=== PATIENT | female | born 1940 ===

== ENCOUNTER 2016-10-01 21:18 | Observation (INO) | payer MEDICARE ==
[~2016-10-01] VITALS: Ht 167.6 cm; Wt 60.3 kg
[2016-10-03 16:00] VITALS: BP 129/58; PULSE 96; RESP 18; TEMP 97.9; O2SAT 96
[2016-10-03] MEDS ORDERED: SIMV40TA PO (17:05)
[2016-10-03] MEDS ORDERED: OMEP20TA PO (17:05)
[2016-10-03] MEDS ORDERED: DIGO0.12 PO (17:05)
[2016-10-03] MEDS ORDERED: PROP20TA3 PO (17:05)
[2016-10-03] MEDS ORDERED: NORT50CA PO (17:05)
[2016-10-03] MEDS ORDERED: WARF-18 PO (17:05)
[2016-10-03] MEDS ORDERED: SODIUM CHLORIDE 0.9% FLUSH 5 ML FLUSH FLUSH PRN (18:30)
[2016-10-03] MEDS: SENNOSIDES 8.6 MG TAB PO SCH (18:30)
[2016-10-03] MEDS ORDERED: ZOLPIDEM TARTRATE 5 MG TAB PO PRN (18:30)
[2016-10-03] MEDS ORDERED: ACETAMINOPHEN 325 MG TAB PO PRN (18:30)
[2016-10-03] MEDS ORDERED: NALOXONE HCL 0.4 MG/ML AMP IV PRN (18:30)
--- NOTE | 2016-10-03 18:50 | HHI.HP ---
[facility] Unknown Admission Diagnosis Diagnoses: (1) Orbital floor fracture (2) Nondisplaced fracture of right patella (3) History of mitral valve replacement with mechanical valve Chief Complaint: Fall Travel History International Travel<30 Days: Yes Contact w/Intl Traveler <30 Da: Yes Name of Country Traveled to: [place] Traveled to Known Affected Are: Yes History of Present Illness The patient is a 76-year-old female who was recently on a cruise and fell on a stair of a house in [facility] and was admitted to a hospital in [place]. The patient had a mechanical fall over a stair and fell on the right side of her body. She hit the right side of her face on the floor as well as her right lower extremity. She was on Coumadin at that time. She was taken to the hospital and was found to have multiple injuries including a nondisplaced right patellar fracture, minimally displaced fracture of the floor of her right orbit and a laceration to the right lower extremity. The patient says she fell down on the 11th of this month. 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 She said that the stairs she was negotiating had a ramp and it was very thin and she misjudged her step. She says her right sinus was filled with blood. She said that failed anticoagulation for 7 days at the hospital in [place]. She said anticoagulation was resumed as of yesterday. The patient endorses constipation. She says her pain is well-controlled at this time. She says she has been ambulating with a walker. She says she worked with physical therapy twice. She says she had a Villela catheter placed for transportation and she is worried she might be coming down with a urinary tract infection. She was concerned that the nurse mentioned she may have some crackles and she was wondering if she might be coming down with pneumonia. Review of Systems Eyes: COMPLAINS OF: Vision loss Ears, nose, mouth, throat: COMPLAINS OF: Nasal discharge, Epistaxis, Sinus Pain Cardiovascular: COMPLAINS OF: Lower Extremity Edema Gastrointestinal: COMPLAINS OF: Constipation Genitourinary: COMPLAINS OF: Dysuria Musculoskeletal: COMPLAINS OF: Joint pain, Muscle aches, Stiffness, Joint Swelling Hematologic/lymphatic: COMPLAINS OF: Bruising Neurologic: COMPLAINS OF: Abnormal gait Past Family Social History Past Medical History Mechanical mitral valve replacement CHF Hyperlipidemia Psoriasis Migraine Optic neuritis with vision loss in the left eye Past Surgical History Knee surgery Allergies: Coded Allergies: No Known Allergies (Unverified , 10/03/16) Active Ordered Medications Current Medications Medications (Trade) Dose Ordered Sig/Patricia Route Start Time Stop Time Status Last Admin (Lanoxin) 0.125 mg DAILY PO 10/04/16 09:00 (Pamelor) 50 mg HS PO 10/03/16 21:00 (Protonix) 20 mg DAILY PO 10/04/16 09:00 (Inderal) 20 mg Q12HR PO 10/03/16 21:00 (Pravachol) 80 mg HS PO 10/03/16 21:00 (Lovenox Inj) 50 mg Q12H SQ 10/03/16 18:30 UNV (NS Flush) 2 ml UNSCH PRN FLUSH 10/03/16 18:30 UNV (NS Flush) 2 ml BID FLUSH 10/03/16 21:00 UNV (Tylenol) 650 mg Q4H PRN PO 10/03/16 18:30 UNV (Colace) 100 mg Q12H PO 10/03/16 18:30 UNV (Senokot) 17.2 mg DAILY PO 10/03/16 18:30 UNV (Ambien) 5 mg HS PRN PO 10/03/16 18:30 UNV (Tylenol) 650 mg Q6H PRN PO 10/03/16 18:30 UNV (Roxicodone) 10 mg Q4H PRN PO 10/03/16 18:30 UNV (Roxicodone) 5 mg Q4H PRN PO 10/03/16 18:30 UNV (Narcan Inj) 0.4 mg UNSCH PRN IV 10/03/16 18:30 UNV Warfarin Sodium 5 mg 5 mg DAILY@1600 PO 10/04/16 16:00 UNV (Coumadin Consult Pharmacy) 0 ml @ 0 mls/hr UNSCH OTHER 10/03/16 18:30 UNV Family History The patient says her father either had prostate or renal cancer Social History The patient does not smoke or drink. Physical Exam Vital Signs Vital Signs Date Time Temp Pulse Resp B/P Pulse Ox O2 Delivery O2 Flow Rate FiO2 10/03/16 16:00 97.9 96 18 129/58 96 Physical Exam GENERAL: This is a well-nourished, well-developed patient, in no apparent distress. SKIN: The right side of the patient's face is swollen and with ecchymosis. She has ecchymosis in her right arm as well. She has psoriasis in the upper and lower extremities. HEENT: Swelling to the right side of the patient's face. NECK: Trachea midline. No JVD or lymphadenopathy. Supple, nontender, no meningeal signs. CARDIOVASCULAR: Regular rate and rhythm. Grade 2 systolic murmur appreciated. RESPIRATORY: Clear to auscultation. Breath sounds equal bilaterally. No wheezes , rales, or rhonchi. GASTROINTESTINAL: Abdomen soft, non-tender, nondistended. No hepato-splenomegaly , or palpable masses. No guarding. MUSCULOSKELETAL: Right lower extremity immobilizer. Bandage in place. NEUROLOGICAL: Awake and alert. Cranial nerves II through XII intact. Motor and sensory grossly within normal limits. Five out of 5 muscle strength in all muscle groups except for right lower extremity which is in a mobilizer. Normal speech. PSYCH: Mood and affect appropriate. Assessment and Plan Assessment and Plan Trauma The patient fell while on a cruise out of the country and was managed in the hospital in [place]. The patient sustained multiple injuries including a minimally displaced right orbital floor fracture, nondisplaced right patellar fracture as well as a laceration and bleeding into the right side of her maxillary sinus. She was seen by numerous physicians including an orthopedic surgeon, a neurosurgery and a maxillofacial surgeon. She was managed conservatively. She was resumed on anticoagulation. - Ortho evaluation for right patellar fracture. - Physical therapy. - Monitor while on anticoagulation. - Pain control with a bowel regimen. Mechanical mitral valve/ CHF The patient has a history of mitral valve replacement and is on Coumadin. Her anticoagulation was held for 7 days while at the outside hospital in the setting of her hematoma but has been resumed. Her last INR was reportedly 1.04. - Resume Coumadin along with the therapeutic Lovenox bridge. Monitor for signs of bleeding. - Continue cardiac regimen. - Chest x-ray pending. Constipation The patient believes it has been a week since her last bowel movement. - Start a bowel regimen including Colace, senna, MiraLAX and lactulose. - Suppository or enema if no success with above. - KUB pending. UTI The patient says that she feels like she might be coming down with urinary tract infection since she had a Villela catheter placed for travel. - UA pending. - Remove Villela catheter. PPx: Lovenox, Coumadin. Code Status Full Discussed Condition With Pt, pt's nurse, Al Rene DO Oct 03, 2016 18:50
[2016-10-03 18:58] LABS: AUTOMATED NEUTROPHIL # 6.8 TH/MM3 (1.8-7.7); BASOPHIL # 0.1 TH/MM3 (0-0.2); BASOPHIL % 1.1 % (0.0-2.0); EOSINOPHIL # 0.2 TH/MM3 (0-0.4); EOSINOPHIL % 2.7 % (0.0-4.0); HEMATOCRIT 35.8 % (35.0-46.0); HEMO FLAGS DIFF FINAL; LYMPH % 8.1 % (9.0-44.0); LYMPHOCYTE # 0.7 TH/MM3 (1.0-4.8); MEAN CELL VOLUME 96.4 FL (80.0-100.0); MEAN CORPUSCULAR HEMOGLOBIN 33.1 PG (27.0-34.0); MEAN CORPUSCULAR HGB CONC 34.4 % (32.0-36.0); MONO % 9.1 % (0.0-8.0); PLATELET COUNT 363 TH/MM3 (150-450); RED BLOOD COUNT 3.71 MIL/MM3 (4.00-5.30); RED CELL DISTRIBUTION WIDTH 13.6 % (11.6-17.2); WHITE BLOOD COUNT 8.5 TH/MM3 (4.0-11.0)
[2016-10-03] MEDS: POLYETHYLENE GLYCOL 17 GM PKG PO SCH (19:00)
[2016-10-03] MEDS: LACTULOSE SYRUP 20 GM/30 ML CUP PO SCH (19:00)
[2016-10-03 19:19] LABS: PROTHROMBIN TIME - PATIENT 11.6 SEC (9.8-11.6)
[2016-10-03 19:27] LABS: BICARBONATE 32.8 MEQ/L (21.0-32.0); POTASSIUM 4.2 MEQ/L (3.5-5.1)
[2016-10-03] MEDS: DOCUSATE SODIUM 100 MG CAP PO SCH (20:00)
[2016-10-03 20:13] VITALS: BP 140/75; PULSE 101; RESP 16; TEMP 98; O2SAT 96
[2016-10-03] MEDS: PRAVASTATIN SOD 80 MG TAB PO SCH (21:33)
[2016-10-03] MEDS: PROPRANOLOL HCL 20 MG TAB PO SCH (21:33)
[2016-10-03] MEDS: ENOXAPARIN SODIUM 60 MG/0.6 ML SYRINGE SQ SCH (21:35)
[2016-10-03] MEDS: SODIUM CHLORIDE 0.9% FLUSH 5 ML FLUSH FLUSH SCH (21:39)
--- NOTE | 2016-10-03 21:41 | RADRPT ---
EXAM DATE/TIME: 10/03/2016 21:07 [facility] COMPARISON: No previous studies available for comparison. INDICATIONS : Right knee pain from fall 2 weeks ago. MEDICAL HISTORY : Right patella fracture SURGICAL HISTORY : None. ENCOUNTER: Initial ACUITY: 2 weeks PAIN SCORE: 7/10 LOCATION: Right anterior knee FINDINGS: There does appear to be fracturing of the patella. The fragments are not significantly displaced. T here is a mild joint effusion. There is narrowing of the lateral joint space. There is hypertrophic change at the lateral tibial plateau. CONCLUSION: Patellar fracture with a mild effusion. Bertram Martines MD on October 03, 2016 at 21:36 Board Certified Radiologist. This report was verified electronically.
--- NOTE | 2016-10-03 21:42 | RADRPT ---
EXAM DATE/TIME: 10/03/2016 20:52 [facility] COMPARISON: No previous studies available for comparison. INDICATIONS : Shortness of breath MEDICAL HISTORY : None. SURGICAL HISTORY : Heart valve replacement ENCOUNTER: Initial ACUITY: 1 day PAIN SCORE: 0/10 LOCATION: Bilateral chest FINDINGS: The patient is status post sternotomy. Prosthetic valve is present. The heart size is normal. Ther e is elevation of the left hemidiaphragm. The lungs appear grossly clear. Significant effusion is n ot seen. CONCLUSION: No definite acute abnormality is seen. Bertram Martines MD on October 03, 2016 at 21:35 Board Certified Radiologist. This report was verified electronically.
[2016-10-03] MEDS: NORTRIPTYLINE HCL 25 MG CAP PO SCH (21:56)
--- NOTE | 2016-10-03 21:56 | RADRPT ---
EXAM DATE/TIME: 10/03/2016 20:57 [facility] COMPARISON: No previous studies available for comparison. INDICATIONS : Abdominal distension MEDICAL HISTORY : None. SURGICAL HISTORY : None. ENCOUNTER: Initial ACUITY: 1 day PAIN SCORE: 0/10 LOCATION: Bilateral abdomen FINDINGS: Air is seen within nondilated segments of bowel. There is a moderate amount of stool seen in the col on. There does appear to be a faint ringlike structure seen over the pelvis which may be related to a pessary ring. There is degenerative change in the lumbar spine. Free air is not seen. CONCLUSION: No definite acute abnormality is seen. There is a moderate amount of stool seen in the colon. Bertram Martines MD on October 03, 2016 at 21:51 Board Certified Radiologist. This report was verified electronically.
[2016-10-04] VITALS: BP 158/86; PULSE 83; RESP 16; TEMP 97.9; O2SAT 97
[2016-10-04 06:01] LABS: PROTHROMBIN TIME - PATIENT 11.5 SEC (9.8-11.6)
[2016-10-04 06:51] LABS: BACTERIA, URINE FEW /hpf; BLOOD, URINE MOD (NEG); GLUCOSE,URINE NEG (NEG); KETONE, URINE NEG (NEG); NITRITE,URINE NEG (NEG); SQUAMOUS EPITHELIAL CELL URINE 3 /hpf (0-5); URINE COLOR YELLOW (YELLW/STRAW)
[2016-10-04 06:53] LABS: COMMENT (UR) CULT NOT INDICATED; CULTURE IF INDICATED CULT NOT INDICATED
--- NOTE | 2016-10-04 07:03 | PD.ORT.PN ---
Subjective Subjective Remarks s/p right patella fx and right leg skin tear doing wel. no complaints Objective Vitals Vital Signs Date Time Temp Pulse Resp B/P Pulse Ox O2 Delivery O2 Flow Rate FiO2 10/04/16 00:00 97.9 83 16 158/86 97 10/03/16 20:13 98.0 101 16 140/75 96 10/03/16 16:00 97.9 96 18 129/58 96 I/O 10/03/16 10/03/16 10/03/16 10/04/16 10/04/16 10/04/16 07:00 15:00 23:00 07:00 15:00 23:00 Intake Total 360 ml 240 ml Balance 360 ml 240 ml Intake Oral 360 ml 240 ml # Voids 2 2 # Bowel Movements 1 Result Diagram: 10/03/16 1841 10/03/16 1841 Other Results Laboratory Tests Test 10/03/16 10/04/16 18:41 05:26 Prothrombin Time 11.6 SEC 11.5 SEC (9.8-11.6) (9.8-11.6) Prothromb Time International 1.0 RATIO 1.0 RATIO Ratio Imaging Last 24 hours Impressions Knee X-Ray 10/03/162056 Signed Impressions: Service Date/Time: Monday, October 03, 2016 21:07 - CONCLUSION: Patellar fracture with a mild effusion. Bertram Martines MD Chest X-Ray 10/03/161820 Signed Impressions: Service Date/Time: Monday, October 03, 2016 20:52 - CONCLUSION: No definite acute abnormality is seen. Bertram Martines MD Objective Remarks RLE: +CKS. NVI distally. skin tear on anterior tibia. healing well. no drainage or purulence. no erythema. Assessment & Plan Assessment and Plan 1) Right Patella Fx - nonop -Maintain knee brace at all times -WBAT in knee brace -PT to eval -DC planning -f/u with Jan or [facility] in 2 weeks 2) Right Leg Skin Tear -daily drssing changes with xeroform/4x4/RAJESH Jack Bansal Oct 04, 2016 07:03
[2016-10-04] MEDS ORDERED: WALKER/ADULT/FO1 MIS (07:05)
[2016-10-04] MEDS ORDERED: NORC5TAB PO (07:05)
[2016-10-04 08:00] VITALS: BP 137/70; PULSE 73; RESP 18; TEMP 96.9; O2SAT 96
[2016-10-04 08:21] VITALS: O2SAT 96
--- NOTE | 2016-10-04 08:30 | MB ---
cc: FAB HALL DATE OF CONSULTATION: 10/04/2016 REASON FOR CONSULTATION: Nondisplaced right patella fracture. HISTORY OF PRESENT ILLNESS: Ms. Gamboa is a 76 year-old female who was on a cruise. She fell while she was in [facility]. She went back to the cruise ship for medical care and then was taken to a hospital in [place]. She was observed there for three days. She hit her head and right leg. She had a laceration on the leg which was previously closed. She had significant bruising and swelling of her face and head. She denies any dizziness, syncope or loss of consciousness. She describes it as a mechanical fall going up stairs. She is chronically on Coumadin secondary to valve replacement surgery. She has been admitted to [facility] for continued treatment of these injuries. She continues to have some pain in the knee. The pain is worse with movement and is improves with rest. PAST MEDICAL HISTORY ILLNESSES 1. CHF. 2. High cholesterol. 3. Psoriasis. 4. Migraines. 5. Optic neuritis with left eye vision loss. PAST SURGICAL HISTORY: 1. Previous knee surgery. 2. Right leg laceration closure. ALLERGIES: No known drug allergies. MEDICATIONS: Please see EMR for a complete list of patient's medications. The list was reviewed. This includes Coumadin. FAMILY HISTORY: Positive for prostate cancer in a father. SOCIAL HISTORY: The patient denies alcohol, tobacco or drug use. REVIEW OF SYSTEMS: The patient denies headache, neck pain, chest pain, shortness of breath, abdominal pain, nausea, vomiting, recent weight loss or numbness or tingling of extremities. She has chronic vision loss. She does have some pain around her right knee and leg. PHYSICAL EXAMINATION The patient is a thin 76 year-old female who is awake and alert. She is alert and oriented x3. Vital signs: Temperature 97.9, pulse 83, respirations 16, blood pressure 158/86. O2 sat 97% on room air. Head: The patient has swelling and bruising around her face. Skin is otherwise intact. Neck: Soft, nontender. Trachea is midline. Abdomen: Soft, nontender, nondistended. Extremities: Examination of bilateral upper extremities reveals no significant pain with shoulder, elbow, or wrist motion. She has intact sensation in radial, ulnar, median nerve distributions bilaterally. She has palpable radial pulses. The embossing press operator molded goods strength +5 bilaterally. Examination of left leg reveals no pain with hip, knee or ankle motion. Skin is intact. Dorsalis pedis pulses palpable. Sensation is intact in left foot. Examination of right leg reveals no significant pain or tenderness around her hip or ankle. She has intact sensation right foot. Dorsalis pedis pulse is palpable. She has approximately a five inch laceration over her anterior tibia which has been closed. There is no erythema present. There is a small amount of bleeding. There is some superficial skin opening. She also has some swelling and bruising around the patella. She is tender to palpation of the patella. X-RAYS X-rays of right knee were reviewed. X-rays reveal a minimally displaced right patella fracture. IMPRESSION 1. Mechanical fall with significant facial bleeding and bruising. 2. Nondisplaced right patella fracture. 3. Right leg laceration. PLAN At this point I would recommend treating the patella fracture, non-operatively. She may weightbear as tolerated with knee immobilizer on. We will start doing daily dressing changes with Xeroform, 4x4s and Chris wrap on her right leg. All questions were answered. She may follow up in the office in two weeks for repeat x-rays of right knee. A mid-level provider in my office, nurse practitioner or PA, may see this patient on a follow-up basis and continue to implement the objective of this plan including: Starting or adjusting medications, injections of muscle, tendon, bursa or joints, cast application, orthotic or brace application, physical therapy, further radiographic studies including x-ray, MRI, CT, ultrasounds or bone scan, vascular studies, neurologic studies, or other specialist consultations, and proceeding with surgical management as appropriate. MD EVIN Cardona/LEVI /7:03 AM /7:52 AM
[2016-10-04] MEDS: LACTULOSE SYRUP 20 GM/30 ML CUP PO SCH (09:00)
[2016-10-04] MEDS: SENNOSIDES 8.6 MG TAB PO SCH (09:00)
[2016-10-04] MEDS: PANTOPRAZOLE SOD 20 MG DELAYED RELEASE TAB PO SCH (09:11)
[2016-10-04] MEDS: DOCUSATE SODIUM 100 MG CAP PO SCH ×2 (09:11→20:00)
[2016-10-04] MEDS: PROPRANOLOL HCL 20 MG TAB PO SCH ×2 (09:11→20:19)
[2016-10-04] MEDS: DIGOXIN 0.125 MG TAB PO SCH (09:11)
[2016-10-04] MEDS: SODIUM CHLORIDE 0.9% FLUSH 5 ML FLUSH FLUSH SCH ×2 (09:12→20:18)
[2016-10-04] MEDS: ENOXAPARIN SODIUM 60 MG/0.6 ML SYRINGE SQ SCH ×2 (09:12→20:19)
[2016-10-04] MEDS: POLYETHYLENE GLYCOL 17 GM PKG PO SCH (09:14)
--- NOTE | 2016-10-04 11:20 | MB ---
cc: ARTURO MAYERS DDVilma DATE OF : 1940 DATE OF CONSULTATION: 10/04/2016 CHIEF COMPLAINT "I fell and I hit my head." HISTORY OF PRESENT ILLNESS Ms. Gamboa is a 76 year-old female who was recently on a cruise and fell on the stair case in [facility] [place]. She was admitted to the hospital in [place] and a series of tests and CTs scans were done and it was noted that she had multiple injuries including a nondisplaced right patella fracture, and minimally displaced fracture of the right orbit and laceration of the right lower extremity. The patient stated that this fall occurred on September 23. Currently the patient is admitted to [facility] under the care of the medical team and with consultation to attraction worker and orthopedic. The patient was seen this morning alert, oriented x3, resting comfortably in a chair in no acute distress. Vital signs stable. PAST MEDICAL HISTORY: 1. Mechanical mitral valve replacement. 2. CHF. 3. Hyperlipidemia. 4. Psoriasis. 5. Migraine and uptake neuritis with visual loss in the left eye. PAST SURGICAL HISTORY: Knee surgery. ALLERGIES: NO KNOWN DRUG ALLERGIES. FAMILY HISTORY: The patient says her father had either prostate or renal cancer. SOCIAL HISTORY: The patient does not smoke or drink. PHYSICAL EXAMINATION: The patient is a well-developed, well-nourished female patient, in no acute distress. SKIN: The patient on the right side of the head extending all the way to her clavicle there is some ecchymosis. HEAD: Normocephalic. Eyes: The patient has some periorbital ecchymosis and edema of the right periorbital region with hematoma noted on the right lateral upper aspect of the right periorbital region. Extraocular muscles are intact. Pupils are equal and reactive to light and accommodation in the right eye. Positive V2 paresthesia on the right side. No diplopia. No visual acuity on the left side . Nose: Nasal complex intact with no epistaxis. There are no lacerations or discharge. Maxillofacial: Maxilla and mandible are intact. Occlusion is stable and reproducible. There is no floor of mouth swelling and the area is patent. Neck: Trachea midline. No JVD. No lymphadenopathy noted. RADIOLOGIC STUDIES: Maxillofacial CT was done at the other hospital. The report stated that the patient had a minimally displaced right orbital floor fracture. ASSESSMENT: This is a 76 year-old female status post mechanical fall with multiple injuries including a minimally displaced right orbital floor fracture. PLAN: No surgical intervention by attraction worker at this time due to the fact that the fracture is minimally displaced and the patient only has vision in the right eye. Would recommend sinus precautions. Continue current medical management. CRYSTAL Dykes/LEVI /10:36 AM /11:09 AM LUDY
[2016-10-04] MEDS: ESTRADIOL 0.1 MG/GM VAG CREAM 42.5 GM VAGINAL SCH (11:30)
[2016-10-04] MEDS: HYDROCORTISONE 2.5% CREAM 30 GM TOPICAL SCH ×2 (11:30→20:19)
--- NOTE | 2016-10-04 11:42 | HHI.PR ---
Subjective Remarks The patient was sitting in a chair and talking on the phone. She said she had no acute complaints. She was wondering about cream for her psoriasis and Estrace for her pessary. She said she talked with the orthopedic team. She was delighted to hear she didn't need surgery. Discussed with nursing. Objective Vitals Vital Signs Date Time Temp Pulse Resp B/P Pulse Ox O2 Delivery O2 Flow Rate FiO2 10/04/16 08:21 96 21 10/04/16 08:00 96.9 73 18 137/70 96 10/04/16 00:00 97.9 83 16 158/86 97 10/03/16 20:13 98.0 101 16 140/75 96 10/03/16 16:00 97.9 96 18 129/58 96 I/O 10/03/16 10/03/16 10/03/16 10/04/16 10/04/16 10/04/16 07:00 15:00 23:00 07:00 15:00 23:00 Intake Total 360 ml 240 ml Balance 360 ml 240 ml Intake Oral 360 ml 240 ml # Voids 2 2 # Bowel Movements 1 Result Diagram: 10/03/16 1841 10/03/16 1841 Imaging Last Impressions Knee X-Ray 10/03/162056 Signed Impressions: Service Date/Time: Monday, October 03, 2016 21:07 - CONCLUSION: Patellar fracture with a mild effusion. Bertram Martines MD Chest X-Ray 10/03/16 1821 Signed Impressions: Service Date/Time: Monday, October 03, 2016 20:52 - CONCLUSION: No definite acute abnormality is seen. Bertram Martines MD Abdomen X-Ray 10/03/16 0000 Signed Impressions: Service Date/Time: Monday, October 03, 2016 20:57 - CONCLUSION: No definite acute abnormality is seen. There is a moderate amount of stool seen in the colon. Bertram Martines MD Objective Remarks GENERAL: This is a well-nourished, well-developed patient, in no apparent distress. SKIN: The right side of the patient's face is swollen and with ecchymosis. She has ecchymosis in her right arm as well. She has psoriasis in the upper and lower extremities. HEENT: Swelling to the right side of the patient's face. NECK: Trachea midline. No JVD or lymphadenopathy. Supple, nontender, no meningeal signs. CARDIOVASCULAR: Regular rate and rhythm. Grade 2 systolic murmur appreciated. RESPIRATORY: Clear to auscultation. Breath sounds equal bilaterally. No wheezes , rales, or rhonchi. GASTROINTESTINAL: Abdomen soft, non-tender, nondistended. No hepato-splenomegaly , or palpable masses. No guarding. MUSCULOSKELETAL: Right lower extremity immobilizer. Bandage in place. NEUROLOGICAL: Awake and alert. Cranial nerves II through XII intact. Motor and sensory grossly within normal limits. Five out of 5 muscle strength in all muscle groups except for right lower extremity which is in a mobilizer. Normal speech. PSYCH: Mood and affect appropriate. Medications and IVs Current Medications Medications (Trade) Dose Ordered Sig/Patricia Route Start Time Stop Time Status Last Admin (Lanoxin) 0.125 mg DAILY PO 10/04/16 09:00 10/04/16 09:11 (Pamelor) 50 mg HS PO 10/03/16 21:00 10/03/16 21:56 (Protonix) 20 mg DAILY PO 10/04/16 09:00 10/04/16 09:11 (Inderal) 20 mg Q12HR PO 10/03/16 21:00 10/04/16 09:11 (Pravachol) 80 mg HS PO 10/03/16 21:00 10/03/16 21:33 (Lovenox Inj) 50 mg Q12HR SQ 10/03/16 21:00 10/04/16 09:12 (NS Flush) 2 ml UNSCH PRN FLUSH 10/03/16 18:30 (NS Flush) 2 ml BID FLUSH 10/03/16 21:00 10/04/16 09:12 (Tylenol) 650 mg Q4H PRN PO 10/03/16 18:30 (Colace) 100 mg Q12H PO 10/03/16 20:00 10/04/16 09:11 (Senokot) 17.2 mg DAILY PO 10/03/16 18:30 (Ambien) 5 mg HS PRN PO 10/03/16 18:30 (Tylenol) 650 mg Q6H PRN PO 10/03/16 18:30 (Roxicodone) 10 mg Q4H PRN PO 10/03/16 18:30 (Roxicodone) 5 mg Q4H PRN PO 10/03/16 18:30 (Narcan Inj) 0.4 mg UNSCH PRN IV 10/03/16 18:30 Warfarin Sodium 5 mg 5 mg DAILY@1600 PO 10/04/16 16:00 (Coumadin Consult Pharmacy) 0 ml @ 0 mls/hr UNSCH OTHER 10/03/16 18:30 (Lactulose Liq) 30 ml DAILY PO 10/03/16 19:00 (Miralax) 17 gm DAILY PO 10/03/16 19:00 10/04/16 09:14 (Estrace 0.01% Vag Cream) 1 appl DAILY VAGINAL 10/04/16 11:30 UNV (Eldecort 2.5% Cream) 1 applic BID TOPICAL 10/04/16 11:30 UNV A/P Problem List: (1) Orbital floor fracture ICD Code: S02.30XA Status: Acute (2) Nondisplaced fracture of right patella ICD Code: S82.001A Status: Acute (3) History of mitral valve replacement with mechanical valve ICD Code: Z95.2 Status: Acute Assessment and Plan Trauma The patient fell [place] and was managed in the hospital in [place]. The patient sustained multiple injuries including a minimally displaced right orbital floor fracture, nondisplaced right patellar fracture as well as a laceration and bleeding into the right side of her maxillary sinus. She was seen by numerous physicians including an orthopedic surgeon, a neurosurgery and a maxillofacial surgeon. She was managed conservatively. She was resumed on anticoagulation. Orthopedic and oral surgery consults appreciated. - WBAT in right knee and dressing changes per ortho. The pt will need outpt follow-up. - Physical therapy. - Pain control with a bowel regimen. - no surgery indicated per oral surgery. Sinus precautions. Mechanical mitral valve/ CHF The patient has a history of mitral valve replacement and is on Coumadin. Her anticoagulation was held for 7 days while at the outside hospital in the setting of her hematoma but has been resumed. CXR without acute disease. - Resume Coumadin along with a therapeutic Lovenox bridge. INR is currently 1. - Continue cardiac regimen. Constipation Resolved. - continue bowel regimen. PPx: Lovenox, Coumadin. Discharge Planning May need SNF placement. Al Mann DO Oct 04, 2016 11:42
[2016-10-04 12:00] VITALS: BP 98/56; PULSE 65; RESP 18; TEMP 95.9; O2SAT 95
[2016-10-04 16:00] VITALS: BP 120/73; PULSE 81; RESP 18; TEMP 99.7; O2SAT 96
[2016-10-04] MEDS: WARFARIN SOD 6 MG TAB PO SCH (16:25)
[2016-10-04 20:00] VITALS: BP 129/55; PULSE 82; RESP 16; TEMP 95.9; O2SAT 98
[2016-10-04] MEDS: NORTRIPTYLINE HCL 25 MG CAP PO SCH (20:19)
[2016-10-04] MEDS: PRAVASTATIN SOD 80 MG TAB PO SCH (20:19)
[2016-10-04] MEDS ORDERED: ESTRADIOL 0.1 MG/GM VAG CREAM 42.5 GM VAGINAL SCH (21:00)
--- NOTE | 2016-10-04 23:38 | EKG ---
Date Performed: 10/03/2016 Time Performed: 20:39:13 PTAGE: 76 years EKG: Sinus rhythm POSSIBLE LEFT ATRIAL ENLARGEMENT INCOMPLETE RIGHT BUNDLE BRANCH BLOCK BORDERLINE ECG NO PREVIOUS TRACING DOCTOR: Amando Huizar Interpretating Date/Time 10/04/2016 23:37:22
[2016-10-05] VITALS: BP 124/71; PULSE 84; RESP 16; TEMP 97.6; O2SAT 97
[2016-10-05 06:50] LABS: HEMATOCRIT 33.1 % (35.0-46.0); MEAN CELL VOLUME 96.2 FL (80.0-100.0); MEAN CORPUSCULAR HEMOGLOBIN 32.9 PG (27.0-34.0); MEAN CORPUSCULAR HGB CONC 34.2 % (32.0-36.0); PLATELET COUNT 324 TH/MM3 (150-450); RED BLOOD COUNT 3.44 MIL/MM3 (4.00-5.30); RED CELL DISTRIBUTION WIDTH 14.3 % (11.6-17.2); REVIEW FLAG FINAL; WHITE BLOOD COUNT 6.6 TH/MM3 (4.0-11.0)
[2016-10-05 07:02] LABS: PROTHROMBIN TIME - PATIENT 11.2 SEC (9.8-11.6)
[2016-10-05 08:00] VITALS: BP 119/61; PULSE 81; RESP 18; TEMP 96; O2SAT 96
[2016-10-05] MEDS: DOCUSATE SODIUM 100 MG CAP PO SCH ×2 (08:00→20:00)
[2016-10-05] MEDS: HYDROCORTISONE 2.5% CREAM 30 GM TOPICAL SCH ×2 (09:00→19:29)
[2016-10-05] MEDS: POLYETHYLENE GLYCOL 17 GM PKG PO SCH (09:00)
[2016-10-05] MEDS: ESTRADIOL 0.1 MG/GM VAG CREAM 42.5 GM VAGINAL SCH (09:00)
[2016-10-05] MEDS: SENNOSIDES 8.6 MG TAB PO SCH (09:00)
[2016-10-05] MEDS: PROPRANOLOL HCL 20 MG TAB PO SCH ×2 (10:23→22:47)
[2016-10-05] MEDS: PANTOPRAZOLE SOD 20 MG DELAYED RELEASE TAB PO SCH (10:23)
[2016-10-05] MEDS: DIGOXIN 0.125 MG TAB PO SCH (10:24)
[2016-10-05] MEDS: ENOXAPARIN SODIUM 60 MG/0.6 ML SYRINGE SQ SCH ×2 (10:25→22:46)
[2016-10-05] MEDS: SODIUM CHLORIDE 0.9% FLUSH 5 ML FLUSH FLUSH SCH ×2 (10:31→22:46)
--- NOTE | 2016-10-05 11:20 | PD.ORT.PN ---
Subjective Subjective Remarks Resting comfortably Objective Vitals Vital Signs Date Time Temp Pulse Resp B/P Pulse Ox O2 Delivery O2 Flow Rate FiO2 10/05/16 08:00 96.0 81 18 119/61 96 10/05/16 00:00 97.6 84 16 124/71 97 10/04/16 20:00 95.9 82 16 129/55 98 10/04/16 16:00 99.7 81 18 120/73 96 10/04/16 12:00 95.9 65 18 98/56 95 I/O 10/04/16 10/04/16 10/04/16 10/05/16 10/05/16 10/05/16 07:00 15:00 23:00 07:00 15:00 23:00 Intake Total 240 ml 720 ml 480 ml 480 ml Balance 240 ml 720 ml 480 ml 480 ml Intake Oral 240 ml 720 ml 480 ml 480 ml # Voids 2 3 3 2 # Bowel Movements 2 0 0 Result Diagram: 10/05/16 0610/03/16 1841 Other Results Laboratory Tests Test 10/05/16 06:19 Prothrombin Time 11.2 SEC (9.8-11.6) Prothromb Time International 1.0 RATIO Ratio Imaging Last 24 hours Impressions Knee X-Ray 10/03/162056 Signed Impressions: Service Date/Time: Monday, October 03, 2016 21:07 - CONCLUSION: Patellar fracture with a mild effusion. Bertram Martines MD Chest X-Ray 10/03/16 1821 Signed Impressions: Service Date/Time: Monday, October 03, 2016 20:52 - CONCLUSION: No definite acute abnormality is seen. Bertram Martines MD Objective Remarks RLE: +CKS. NVI distally. skin tear on anterior tibia. healing well. no drainage or purulence. no erythema. Assessment & Plan Assessment and Plan 1) Right Patella Fx - nonop -Maintain knee brace at all times -WBAT in knee brace -PT to eval -DC planning -f/u with Jan or [facility] in 2 weeks 2) Right Leg Skin Tear -daily dressing changes with xeroform/4x4/RAJESH Orthopedically cleared for discharge LIANA DAVIS PA-C Oct 05, 2016 11:20
[2016-10-05 12:00] VITALS: BP 99/57; PULSE 75; RESP 18; TEMP 97.6; O2SAT 97
--- NOTE | 2016-10-05 13:11 | HHI.PR ---
Subjective Remarks Patient resting comfortably on the chair, no chest pain short of breath, she is afebrile She told me she wants to go to SNF in [place], I discussed with the manager case management, we are waiting on acceptance, at the same time patient is on bridging anticoagulation for mitral mechanical valve, INR still a 1.2R goal is 2.5-3.5 Objective Vitals Vital Signs Date Time Temp Pulse Resp B/P Pulse Ox O2 Delivery O2 Flow Rate FiO2 10/05/16 08:00 96.0 81 18 119/61 96 10/05/16 00:00 97.6 84 16 124/71 97 10/04/16 20:00 95.9 82 16 129/55 98 10/04/16 16:00 99.7 81 18 120/73 96 I/O 10/04/16 10/04/16 10/04/16 10/05/16 10/05/16 10/05/16 07:00 15:00 23:00 07:00 15:00 23:00 Intake Total 240 ml 720 ml 480 ml 480 ml Balance 240 ml 720 ml 480 ml 480 ml Intake Oral 240 ml 720 ml 480 ml 480 ml # Voids 2 3 3 2 # Bowel Movements 2 0 0 Result Diagram: 10/05/16 0619 10/03/16 1841 Objective Remarks GENERAL: This is a well-nourished, well-developed patient, in no apparent distress. SKIN: Ecchymosis on the right side of the face, psoriasis plaque on the upper lower extremity HEAD: Atraumatic. Normocephalic. EYES: Pupils equal round and reactive. Extraocular motions intact. No scleral icterus. ENT: Nose without bleeding, or drainage, Airway patent. NECK: Trachea midline. Supple CARDIOVASCULAR: Regular rate and rhythm without murmurs, gallops, or rubs. RESPIRATORY: Fair air entry bilaterally. No wheezes, rales, or rhonchi. GASTROINTESTINAL: Abdomen soft, non-tender, nondistended. Positive bowel sounds MUSCULOSKELETAL: Extremities without clubbing, cyanosis, or edema. Pedal pulses appreciated NEUROLOGICAL: Awake and alert. Moves all extremity. Normal speech.no focal neurological deficit A/P Problem List: (1) Orbital floor fracture ICD Code: S02.30XA Status: Acute (2) Nondisplaced fracture of right patella ICD Code: S82.001A Status: Acute (3) History of mitral valve replacement with mechanical valve ICD Code: Z95.2 Status: Acute Assessment and Plan Trauma The patient fell [place] and was managed in the hospital in [place]. The patient sustained multiple injuries including a minimally displaced right orbital floor fracture, nondisplaced right patellar fracture as well as a laceration and bleeding into the right side of her maxillary sinus. She was seen by numerous physicians including an orthopedic surgeon, a neurosurgery and a maxillofacial surgeon. She was managed conservatively. She was resumed on anticoagulation. Orthopedic and oral surgery consults appreciated. - WBAT in right knee and dressing changes per ortho. The pt will need outpt follow-up. - Physical therapy. - Pain control with a bowel regimen. - no surgery indicated per oral surgery. Sinus precautions. Mechanical mitral valve/ CHF The patient has a history of mitral valve replacement and is on Coumadin. Her anticoagulation was held for 7 days while at the outside hospital in the setting of her hematoma but has been resumed. CXR without acute disease. - Resume Coumadin along with a therapeutic Lovenox bridge. INR is currently 1. - Continue cardiac regimen. Constipation Resolved. - continue bowel regimen. PPx: Lovenox, Coumadin. Discharge Planning When INR closer to target, currently on bridging until coagulation for mechanical valve Patient wants to go to [place]'s notes, manager case management waiting on acceptance, they will notify me once we obtain Papi Cuellar MD Oct 05, 2016 13:11
[2016-10-05] MEDS ORDERED: COUM6TAB PO (13:21)
[2016-10-05 16:00] VITALS: BP 111/60; PULSE 78; RESP 18; TEMP 96.3; O2SAT 96
[2016-10-05] MEDS ORDERED: WARFARIN SOD 1 MG TAB PO SCH (16:00)
[2016-10-05] MEDS: WARFARIN SOD 6 MG TAB PO SCH (16:31)
[2016-10-05] MEDS: ACETAMINOPHEN 325 MG TAB PO PRN (17:21)
[2016-10-05 20:35] VITALS: BP 118/62; PULSE 93; RESP 16; TEMP 95.6; O2SAT 94
[2016-10-05] MEDS: PRAVASTATIN SOD 80 MG TAB PO SCH (22:48)
[2016-10-05] MEDS: NORTRIPTYLINE HCL 25 MG CAP PO SCH (22:49)
[2016-10-05 23:20] VITALS: BP 131/72; PULSE 80; RESP 16; TEMP 96.3; O2SAT 97
[2016-10-06 06:12] LABS: INTERNATIONAL NORMALIZED RATIO 1.2 RATIO; PROTHROMBIN TIME - PATIENT 12.8 SEC (9.8-11.6)
[2016-10-06 08:00] VITALS: BP 110/59; PULSE 79; RESP 17; TEMP 96.5; O2SAT 94
[2016-10-06] MEDS: HYDROCORTISONE 2.5% CREAM 30 GM TOPICAL SCH ×2 (09:00→21:00)
--- NOTE | 2016-10-06 09:46 | HHI.PR ---
Subjective Remarks Amber sitting on the chair pleasant doing well, she is not in distress or chest pain or short of breath she is afebrile Her INR is still at 1.2 we'll try to get it as close to our goal as we can, pharmacies managing dosing Coumadin, and extra dose today, if INR is at least 2 or above we can discharge her on bridging to sniff tomorrow, she was to go to [facility] in [place], human services case manager working on acceptance Objective Vitals Vital Signs Date Time Temp Pulse Resp B/P Pulse Ox O2 Delivery O2 Flow Rate FiO2 10/06/16 08:00 96.5 79 17 110/59 94 10/05/16 23:20 96.3 80 16 131/72 97 10/05/16 20:35 95.6 93 16 118/62 94 10/05/16 19:25 Room Air 10/05/16 16:00 96.3 78 18 111/60 96 10/05/16 12:00 97.6 75 18 99/57 97 I/O 10/05/16 10/05/16 10/05/16 10/06/16 10/06/16 10/06/16 07:00 15:00 23:00 07:00 15:00 23:00 Intake Total 480 ml 1200 ml 240 ml Balance 480 ml 1200 ml 240 ml Intake Oral 480 ml 1200 ml 240 ml # Voids 2 5 2 # Bowel Movements 0 3 0 Result Diagram: 10/05/16 0619 10/03/16 1841 Objective Remarks GENERAL: This is a well-nourished, well-developed patient, in no apparent distress. SKIN: Ecchymosis on the right side of the face, psoriasis plaque on the upper lower extremity HEAD: Atraumatic. Normocephalic. EYES: Pupils equal round and reactive. Extraocular motions intact. No scleral icterus. ENT: Nose without bleeding, or drainage, Airway patent. NECK: Trachea midline. Supple CARDIOVASCULAR: Regular rate and rhythm without murmurs, gallops, or rubs. RESPIRATORY: Fair air entry bilaterally. No wheezes, rales, or rhonchi. GASTROINTESTINAL: Abdomen soft, non-tender, nondistended. Positive bowel sounds MUSCULOSKELETAL: Extremities without clubbing, cyanosis, or edema. Pedal pulses appreciated NEUROLOGICAL: Awake and alert. Moves all extremity. Normal speech.no focal neurological deficit A/P Problem List: (1) Orbital floor fracture ICD Code: S02.30XA Status: Acute (2) Nondisplaced fracture of right patella ICD Code: S82.001A Status: Acute (3) History of mitral valve replacement with mechanical valve ICD Code: Z95.2 Status: Acute Assessment and Plan 10/06/16: INR 1.2, pharmacy managing Coumadin, extra dose today, INR in a.m. human services case manager working on getting up at in [facility] in [place]. The patient wants to go, patient can probably be discharged when INR closer to goal, her goal is 2.5-3.5 A/P: Trauma The patient fell while on a cruise out of the country and was managed in the hospital in [place]. The patient sustained multiple injuries including a minimally displaced right orbital floor fracture, nondisplaced right patellar fracture as well as a laceration and bleeding into the right side of her maxillary sinus. She was seen by numerous physicians including an orthopedic surgeon, a neurosurgery and a maxillofacial surgeon. She was managed conservatively. She was resumed on anticoagulation. Orthopedic and oral surgery consults appreciated. - WBAT in right knee and dressing changes per ortho. The pt will need outpt follow-up. - Physical therapy. - Pain control with a bowel regimen. - no surgery indicated per oral surgery. Sinus precautions. Mechanical mitral valve/ CHF The patient has a history of mitral valve replacement and is on Coumadin. Her anticoagulation was held for 7 days while at the outside hospital in the setting of her hematoma but has been resumed. CXR without acute disease. - Resume Coumadin along with a therapeutic Lovenox bridge. INR is currently 1. - Continue cardiac regimen. Constipation Resolved. - continue bowel regimen. PPx: Lovenox, Coumadin. Discharge Planning When INR closer to target, currently on bridging until coagulation for mechanical valve Patient wants to go to [place] notes, human services case manager waiting on acceptance, they will notify me once we obtain Papi Cuellar MD Oct 06, 2016 09:46
[2016-10-06] MEDS: DOCUSATE SODIUM 100 MG CAP PO SCH ×2 (10:06→21:04)
[2016-10-06] MEDS: PROPRANOLOL HCL 20 MG TAB PO SCH ×2 (10:06→21:03)
[2016-10-06] MEDS: DIGOXIN 0.125 MG TAB PO SCH (10:06)
[2016-10-06] MEDS: SENNOSIDES 8.6 MG TAB PO SCH (10:06)
[2016-10-06] MEDS: PANTOPRAZOLE SOD 20 MG DELAYED RELEASE TAB PO SCH (10:07)
[2016-10-06] MEDS: POLYETHYLENE GLYCOL 17 GM PKG PO SCH (10:07)
[2016-10-06] MEDS: SODIUM CHLORIDE 0.9% FLUSH 5 ML FLUSH FLUSH SCH ×2 (10:11→21:04)
[2016-10-06] MEDS: ENOXAPARIN SODIUM 60 MG/0.6 ML SYRINGE SQ SCH ×2 (10:23→21:04)
[2016-10-06] MEDS: ESTRADIOL 0.1 MG/GM VAG CREAM 42.5 GM VAGINAL SCH (10:24)
[2016-10-06 12:00] VITALS: BP 115/60; PULSE 80; RESP 18; TEMP 96.8; O2SAT 94
[2016-10-06 16:00] VITALS: BP 123/70; PULSE 77; RESP 18; TEMP 96.8; O2SAT 94
[2016-10-06] MEDS ORDERED: WARFARIN SOD 1 MG TAB PO SCH (16:00)
[2016-10-06] MEDS: WARFARIN SOD 6 MG TAB PO SCH (16:18)
[2016-10-06 19:45] VITALS: BP 116/58; PULSE 84; RESP 16; TEMP 97; O2SAT 95
[2016-10-06] MEDS: PRAVASTATIN SOD 80 MG TAB PO SCH (21:04)
[2016-10-06] MEDS: ACETAMINOPHEN 325 MG TAB PO PRN (21:04)
[2016-10-06] MEDS: NORTRIPTYLINE HCL 25 MG CAP PO SCH (21:04)
[2016-10-07 00:15] VITALS: BP 134/60; PULSE 90; RESP 16; TEMP 96.8; O2SAT 95
[2016-10-07] MEDS: DOCUSATE SODIUM 100 MG CAP PO SCH ×2 (08:00→21:22)
[2016-10-07 08:20] VITALS: BP 128/75; PULSE 87; RESP 16; TEMP 96.9; O2SAT 97
[2016-10-07 08:34] LABS: INTERNATIONAL NORMALIZED RATIO 1.6 RATIO; PROTHROMBIN TIME - PATIENT 18.3 SEC (9.8-11.6)
[2016-10-07] MEDS: SENNOSIDES 8.6 MG TAB PO SCH (09:00)
[2016-10-07] MEDS: ESTRADIOL 0.1 MG/GM VAG CREAM 42.5 GM VAGINAL SCH (09:00)
[2016-10-07] MEDS: HYDROCORTISONE 2.5% CREAM 30 GM TOPICAL SCH ×2 (09:00→21:00)
[2016-10-07] MEDS: ENOXAPARIN SODIUM 60 MG/0.6 ML SYRINGE SQ SCH ×2 (09:01→21:23)
[2016-10-07] MEDS: POLYETHYLENE GLYCOL 17 GM PKG PO SCH (09:01)
[2016-10-07] MEDS: PANTOPRAZOLE SOD 20 MG DELAYED RELEASE TAB PO SCH (09:02)
[2016-10-07] MEDS: SODIUM CHLORIDE 0.9% FLUSH 5 ML FLUSH FLUSH SCH ×2 (09:02→21:23)
[2016-10-07] MEDS: DIGOXIN 0.125 MG TAB PO SCH (09:02)
[2016-10-07] MEDS: PROPRANOLOL HCL 20 MG TAB PO SCH ×2 (09:02→21:22)
--- NOTE | 2016-10-07 11:03 | HHI.FF ---
Face to Face Verification Diagnosis: (1) Orbital floor fracture (2) Nondisplaced fracture of right patella (3) History of mitral valve replacement with mechanical valve Physical Therapy Order: Evaluate and Treat Occupational Therapy Order: Evaluate and Treat Home Health Nursing Order: Medical education Medication education-adverse effect Nursing assessment with vital signs Instructions: Making sure Lovenox administrated correctly to overlap with therapeutic INR for 2 days I have seen patient Amber Gamboa on 10/07/16. My clinical findings support the need for the requested home health care services because: Ltd mobility - disease progression Deconditioned w/ increased weakness High risk of falls I certify that my clinical findings support that this patient is homebound because: Unsteady gait/balance Unsafe to leave home unassisted Papi Cuellar MD Oct 07, 2016 11:03
[2016-10-07] MEDS ORDERED: ENOX60P SQ (11:28)
--- NOTE | 2016-10-07 11:35 | HHI.PR ---
Subjective Remarks Follow up on bilateral wrist fracture status post fall. Patient with mitral mechanical valve, currently she is doing well, pain is tolerable, no short of breath, afebrile housing case manager just told me patient is not eligible for rehabilitation so we will try to get her stable to go home with home health care for PT OT, as well as making sure they will take care of her anticoagulation bridging which need to be overlapped on a therapeutic INR 2.5-3.5 for 2 days. Applying that corrects the may put the patient at risk of stroke I discussed with the patient extensively, she is concerned, because she lives alone, her daughter lives in [place], I discussed with physical therapy assess her ability to go home with home health care for PT OT Objective Vitals Vital Signs Date Time Temp Pulse Resp B/P Pulse Ox O2 Delivery O2 Flow Rate FiO2 10/07/16 08:20 96.9 87 16 128/75 97 10/07/16 00:15 96.8 90 16 134/60 95 10/06/16 19:45 97.0 84 16 116/58 95 10/06/16 16:00 96.8 77 18 123/70 94 10/06/16 12:00 96.8 80 18 115/60 94 I/O 10/06/16 10/06/16 10/06/16 10/07/16 10/07/16 10/07/16 07:00 15:00 23:00 07:00 15:00 23:00 Intake Total 960 ml 720 ml 240 ml Balance 960 ml 720 ml 240 ml Intake Oral 960 ml 720 ml 240 ml # Voids 6 5 3 # Bowel Movements 1 1 0 Result Diagram: 10/05/16 0619 10/03/16 1841 Objective Remarks GENERAL: This is a well-nourished, well-developed patient, in no apparent distress. SKIN: Ecchymosis on the right side of the face, psoriasis plaque on the upper lower extremity HEAD: Atraumatic. Normocephalic. EYES: Pupils equal round and reactive. Extraocular motions intact. No scleral icterus. ENT: Nose without bleeding, or drainage, Airway patent. NECK: Trachea midline. Supple CARDIOVASCULAR: Regular rate and rhythm without murmurs, gallops, or rubs. RESPIRATORY: Fair air entry bilaterally. No wheezes, rales, or rhonchi. GASTROINTESTINAL: Abdomen soft, non-tender, nondistended. Positive bowel sounds MUSCULOSKELETAL: Extremities without clubbing, cyanosis, or edema. Pedal pulses appreciated NEUROLOGICAL: Awake and alert. Moves all extremity. Normal speech.no focal neurological deficit A/P Problem List: (1) Orbital floor fracture ICD Code: S02.30XA Status: Acute (2) Nondisplaced fracture of right patella ICD Code: S82.001A Status: Acute (3) History of mitral valve replacement with mechanical valve ICD Code: Z95.2 Status: Acute Assessment and Plan A/P: Trauma The patient fell while on a cruise out of the country and was managed in the hospital in [place]. The patient sustained multiple injuries including a minimally displaced right orbital floor fracture, nondisplaced right patellar fracture as well as a laceration and bleeding into the right side of her maxillary sinus. She was seen by numerous physicians including an orthopedic surgeon, a neurosurgery and a maxillofacial surgeon. She was managed conservatively. She was resumed on anticoagulation. Orthopedic and oral surgery consults appreciated. - WBAT in right knee and dressing changes per ortho. The pt will need outpt follow-up. - Physical therapy. - Pain control with a bowel regimen. - no surgery indicated per oral surgery. Sinus precautions. Mechanical mitral valve/ CHF - INR 1.6, pharmacy managing Coumadin, INR in a.m. D/Wcase business liaison manager patient wants to go to [facility] in [place]. However I was told by housing case manager patient is not eligible for rehabilitation, we'll work on stabilizing her in getting her discharged on home with home health care for PT OT and to assure correct Coumadin bridging Lovenox Coumadin for mechanical mitral valve Constipation Resolved. - continue bowel regimen. PPx: Lovenox, Coumadin. D/W patient D/W housing case manager D/W physical therapist D/W nurse Discharge Planning When INR closer to target, currently on bridging until coagulation for mechanical valve Patient wants to go to [place]'s notes, I discussed today with the housing case manager , initially we wear waiting on acceptance, from [facility] in [place] , however housing case manager just told me patient is not eligible for rehabilitation so we will try to get her stable to go home with home health care for PT OT, as well as making sure they will take care of her anticoagulation bridging which need to be overlapped on a therapeutic INR 2.5- 3.5 for 2 days. Problem with applying anticoagulation template the patient at the risk of stroke Papi Cuellar MD Oct 07, 2016 11:35
[2016-10-07 15:33] VITALS: BP 114/62; PULSE 81; RESP 17; TEMP 96; O2SAT 96
[2016-10-07] MEDS: WARFARIN SOD 6 MG TAB PO SCH (17:10)
[2016-10-07 20:00] VITALS: BP 131/69; PULSE 91; RESP 18; TEMP 97.1; O2SAT 97
[2016-10-07] MEDS: ACETAMINOPHEN 325 MG TAB PO PRN (21:21)
[2016-10-07] MEDS: PRAVASTATIN SOD 80 MG TAB PO SCH (21:22)
[2016-10-07] MEDS: NORTRIPTYLINE HCL 25 MG CAP PO SCH (21:22)
[2016-10-07 23:45] VITALS: BP 128/65; PULSE 79; RESP 16; TEMP 98.3; O2SAT 96
[2016-10-08 05:01] LABS: AUTOMATED NEUTROPHIL # 4.7 TH/MM3 (1.8-7.7); BASOPHIL # 0.1 TH/MM3 (0-0.2); BASOPHIL % 1.3 % (0.0-2.0); EOSINOPHIL # 0.4 TH/MM3 (0-0.4); EOSINOPHIL % 6.2 % (0.0-4.0); HEMATOCRIT 33.2 % (35.0-46.0); HEMO FLAGS DIFF FINAL; LYMPH % 13.1 % (9.0-44.0); LYMPHOCYTE # 0.9 TH/MM3 (1.0-4.8); MEAN CELL VOLUME 96.5 FL (80.0-100.0); MEAN CORPUSCULAR HEMOGLOBIN 33.5 PG (27.0-34.0); MEAN CORPUSCULAR HGB CONC 34.7 % (32.0-36.0); MONO % 10.5 % (0.0-8.0); NEUT % 68.9 % (16.0-70.0); PLATELET COUNT 322 TH/MM3 (150-450); RED BLOOD COUNT 3.44 MIL/MM3 (4.00-5.30); RED CELL DISTRIBUTION WIDTH 14.6 % (11.6-17.2); WHITE BLOOD COUNT 6.8 TH/MM3 (4.0-11.0)
[2016-10-08 05:07] LABS: INTERNATIONAL NORMALIZED RATIO 1.9 RATIO; PROTHROMBIN TIME - PATIENT 21.9 SEC (9.8-11.6)
[2016-10-08 05:28] LABS: BICARBONATE 29.7 MEQ/L (21.0-32.0); POTASSIUM 4.1 MEQ/L (3.5-5.1)
--- NOTE | 2016-10-08 06:48 | PD.ORT.PN ---
Subjective Subjective Remarks Resting comfortably Objective Vitals Vital Signs Date Time Temp Pulse Resp B/P Pulse Ox O2 Delivery O2 Flow Rate FiO2 10/07/16 23:45 98.3 79 16 128/65 96 10/07/16 20:00 97.1 91 18 131/69 97 10/07/16 15:33 96.0 81 17 114/62 96 10/07/16 08:55 Room Air 10/07/16 08:20 96.9 87 16 128/75 97 I/O 10/07/16 10/07/16 10/07/16 10/08/16 10/08/16 10/08/16 07:00 15:00 23:00 07:00 15:00 23:00 Intake Total 240 ml 480 ml 480 ml 480 ml Balance 240 ml 480 ml 480 ml 480 ml Intake Oral 240 ml 480 ml 480 ml 480 ml # Voids 3 3 3 3 # Bowel Movements 0 1 0 0 Result Diagram: 10/08/16 0351 10/08/16 0351 Other Results Laboratory Tests Test 10/07/16 10/08/16 07:56 03:51 Prothrombin Time 18.3 SEC 21.9 SEC (9.8-11.6) (9.8-11.6) Prothromb Time International 1.6 RATIO 1.9 RATIO Ratio Imaging Last 24 hours Impressions Knee X-Ray 10/03/162056 Signed Impressions: Service Date/Time: Monday, October 03, 2016 21:07 - CONCLUSION: Patellar fracture with a mild effusion. Bertram Martines MD Chest X-Ray 10/03/16 1821 Signed Impressions: Service Date/Time: Monday, October 03, 2016 20:52 - CONCLUSION: No definite acute abnormality is seen. Bertram Martines MD Objective Remarks RLE: +CKS. NVI distally. skin tear on anterior tibia. healing well. no drainage or purulence. no erythema. Assessment & Plan Assessment and Plan 1) Right Patella Fx - nonop -Maintain knee brace at all times, no ROM -WBAT in knee brace -PT to eval -DC planning -f/u with Jan or [facility]ALL in 2 weeks 2) Right Leg Skin Tear -daily dressing changes with xeroform/4x4/RAJESH Orthopedically cleared for discharge LIANA DAVIS PA-C Oct 08, 2016 06:48
[2016-10-08 08:00] VITALS: BP 131/77; PULSE 83; RESP 20; TEMP 95.2; O2SAT 96
[2016-10-08] MEDS: PANTOPRAZOLE SOD 20 MG DELAYED RELEASE TAB PO SCH (08:28)
[2016-10-08] MEDS: ENOXAPARIN SODIUM 60 MG/0.6 ML SYRINGE SQ SCH ×2 (08:28→20:56)
[2016-10-08] MEDS: DIGOXIN 0.125 MG TAB PO SCH (08:28)
[2016-10-08] MEDS: PROPRANOLOL HCL 20 MG TAB PO SCH ×2 (08:28→20:56)
[2016-10-08] MEDS: DOCUSATE SODIUM 100 MG CAP PO SCH ×2 (08:28→20:56)
[2016-10-08] MEDS: SODIUM CHLORIDE 0.9% FLUSH 5 ML FLUSH FLUSH SCH ×2 (08:29→20:56)
[2016-10-08] MEDS: ESTRADIOL 0.1 MG/GM VAG CREAM 42.5 GM VAGINAL SCH (08:33)
[2016-10-08] MEDS: HYDROCORTISONE 2.5% CREAM 30 GM TOPICAL SCH ×2 (08:33→20:56)
[2016-10-08] MEDS: SENNOSIDES 8.6 MG TAB PO SCH (08:33)
[2016-10-08] MEDS: POLYETHYLENE GLYCOL 17 GM PKG PO SCH (08:33)
[2016-10-08 12:00] VITALS: BP 107/53; PULSE 68; RESP 20; TEMP 97.2; O2SAT 96
--- NOTE | 2016-10-08 13:30 | HHI.PR ---
Subjective Remarks pt says she feels well. no CP or sob. +BM. pain controlled. feels like leaving hospital. Objective Vital Signs Date Time Temp Pulse Resp B/P Pulse Ox O2 Delivery O2 Flow Rate FiO2 10/08/16 08:00 95.2 83 20 131/77 96 10/07/16 23:45 98.3 79 16 128/65 96 10/07/16 20:00 97.1 91 18 131/69 97 10/07/16 15:33 96.0 81 17 114/62 96 I/O 10/07/16 10/07/16 10/07/16 10/08/16 10/08/16 10/08/16 07:00 15:00 23:00 07:00 15:00 23:00 Intake Total 240 ml 480 ml 480 ml 480 ml Balance 240 ml 480 ml 480 ml 480 ml Intake Oral 240 ml 480 ml 480 ml 480 ml # Voids 3 3 3 3 # Bowel Movements 0 1 0 0 Result Diagram: 10/08/16 0351 10/08/16 0351 Imaging Last Impressions Knee X-Ray 10/03/162056 Signed Impressions: Service Date/Time: Monday, October 03, 2016 21:07 - CONCLUSION: Patellar fracture with a mild effusion. Bertram Martines MD Chest X-Ray 10/03/16 1821 Signed Impressions: Service Date/Time: Monday, October 03, 2016 20:52 - CONCLUSION: No definite acute abnormality is seen. Bertram Martines MD Abdomen X-Ray 10/03/16 0000 Signed Impressions: Service Date/Time: Monday, October 03, 2016 20:57 - CONCLUSION: No definite acute abnormality is seen. There is a moderate amount of stool seen in the colon. Bertram Martines MD Objective Remarks GENERAL: sitting up in bed. appears comfortable. AAOx3 SKIN: Warm and dry. HEAD: right tempoarl/orbital echymosis with scabbed over laceration to right lateral eyebrow EYES: No scleral icterus. No injection or drainage. NECK: Supple, trachea midline. No JVD or lymphadenopathy. CARDIOVASCULAR: Regular rate and rhythm without murmurs, gallops, or rubs. RESPIRATORY: Breath sounds equal bilaterally. No accessory muscle use. GASTROINTESTINAL: Abdomen soft, non-tender, nondistended. MUSCULOSKELETAL: No cyanosis, or edema. postop right leg in brace. BACK: Nontender without obvious deformity. No CVA tenderness. A/P Assessment and Plan //Trauma The patient fell [place] and was managed in the hospital in [place]. The patient sustained multiple injuries including a minimally displaced right orbital floor fracture, nondisplaced right patellar fracture as well as a laceration and bleeding into the right side of her maxillary sinus. She was seen by numerous physicians including an orthopedic surgeon, a neurosurgery and a maxillofacial surgeon. She was managed conservatively. She was resumed on anticoagulation. Orthopedic and oral surgery consults appreciated. - WBAT in right knee and dressing changes per ortho. The pt will need outpt follow-up. - Physical therapy. - Pain control with a bowel regimen. - no surgery indicated per oral surgery. Sinus precautions. -10/08. no changes. f/u PCP //Patellar fx. nonoperative mgt. -brace per ortho. -f/u with Jan or PA in 2 weeks //Right Leg Skin Tear -As per ortho - cont daily dressing changes with xeroform/4x4/RAJESH //Mechanical mitral valve/ CHF - INR 1.9, pharmacy managing Coumadin, - D/Wcase fleet manager can do Lovenox Bridge unitl INR therapeutic (INR therapeutic range 2.5-3.5) -family will pay for SNF. Constipation Resolved. - continue bowel regimen. PPx: Lovenox bridging until inr 2.5-3.5 range, Coumadin. d/w CM, nurse, patient. Discharge Planning DC to SNF. pt will need lovenox bridge till INR 2.5-3.5 for 2 consecutive days. Maksim Croft MD Oct 08, 2016 13:30
--- NOTE | 2016-10-08 13:39 | HHI.DS ---
Discharge Summary Admission Date Oct 03, 2016 at 15:34 Discharge Date: Oct 08, 2016 Admitting Diagnosis trauma s/p fall (1) Orbital floor fracture ICD Code: S02.30XA (2) Nondisplaced fracture of right patella ICD Code: S82.001A (3) History of mitral valve replacement with mechanical valve ICD Code: Z95.2 Procedures no invasive procedures Brief History - From Admission The patient is a 76-year-old female who was recently on a cruise and fell on a stair of a house in [facility] and was admitted to a hospital in [place]. The patient had a mechanical fall over a stair and fell on the right side of her body. She hit the right side of her face on the floor as well as her right lower extremity. She was on Coumadin at that time. She was taken to the hospital and was found to have multiple injuries including a nondisplaced right patellar fracture, minimally displaced fracture of the floor of her right orbit and a laceration to the right lower extremity. The patient says she fell down on the 11th of this month. 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 She said that the stairs she was negotiating had a ramp and it was very thin and she misjudged her step. She says her right sinus was filled with blood. She said that failed anticoagulation for 7 days at the hospital in [place]. She said anticoagulation was resumed as of yesterday. The patient endorses constipation. She says her pain is well-controlled at this time. She says she has been ambulating with a walker. She says she worked with physical therapy twice. She says she had a [place] catheter placed for transportation and she is worried she might be coming down with a urinary tract infection. She was concerned that the nurse mentioned she may have some crackles and she was wondering if she might be coming down with pneumonia. CBC/BMP: 10/08/16 0351 10/08/16 0351 Significant Findings Laboratory Tests Test 10/06/16 10/07/16 10/08/16 05:41 07:56 03:51 Prothrombin Time 12.8 SEC 18.3 SEC 21.9 SEC (9.8-11.6) (9.8-11.6) (9.8-11.6) Red Blood Count 3.44 MIL/MM3 (4.00-5.30) Hemoglobin 11.5 GM/DL (11.6-15.3) Hematocrit 33.2 % (35.0-46.0) Monocytes (%) (Auto) 10.5 % (0.0-8.0) Eosinophils (%) (Auto) 6.2 % (0.0-4.0) Lymphocytes # (Auto) 0.9 TH/MM3 (1.0-4.8) Random Glucose 108 MG/DL (74-106) Imaging Last Impressions Knee X-Ray 10/03/162056 Signed Impressions: Service Date/Time: Monday, October 03, 2016 21:07 - CONCLUSION: Patellar fracture with a mild effusion. Bertram Martines MD Chest X-Ray 10/03/16 1821 Signed Impressions: Service Date/Time: Monday, October 03, 2016 20:52 - CONCLUSION: No definite acute abnormality is seen. Bertram Martines MD Abdomen X-Ray 10/03/16 0000 Signed Impressions: Service Date/Time: Monday, October 03, 2016 20:57 - CONCLUSION: No definite acute abnormality is seen. There is a moderate amount of stool seen in the colon. Bertram Martines MD PE at Discharge GENERAL: This is a well-nourished, well-developed patient, in no apparent distress. SKIN: Ecchymosis on the right side of the face, psoriasis plaque on the upper lower extremity HEAD: Atraumatic. Normocephalic. EYES: Pupils equal round and reactive. Extraocular motions intact. No scleral icterus. ENT: Nose without bleeding, or drainage, Airway patent. NECK: Trachea midline. Supple CARDIOVASCULAR: Regular rate and rhythm without murmurs, gallops, or rubs. RESPIRATORY: Fair air entry bilaterally. No wheezes, rales, or rhonchi. GASTROINTESTINAL: Abdomen soft, non-tender, nondistended. Positive bowel sounds MUSCULOSKELETAL: Extremities without clubbing, cyanosis, or edema. Pedal pulses appreciated NEUROLOGICAL: Awake and alert. Moves all extremity. Normal speech.no focal neurological deficit Hospital Course Orthopedics consult at for patellar fracture. Nonoperative management. Patient will follow-up with orthopedics as outpatient. ENT was consult due to orbital fracture, however plan for conservative management without surgery. Patient will need to follow-up with [facility], with [facility] as outpatient. Patient does have a mechanical mitral valve, which will need INR between 2.53.5. She was discharged with Lovenox for bridging. Please see problem based summary as below. patient will need to bridged to therapeutic INR 2.5-3.5. //Trauma The [place] and was managed in the hospital in [place]. The patient sustained multiple injuries including a minimally displaced right orbital floor fracture, nondisplaced right patellar fracture as well as a laceration and bleeding into the right side of her maxillary sinus. She was seen by numerous physicians including an orthopedic surgeon, a neurosurgery and a maxillofacial surgeon. She was managed conservatively. She was resumed on anticoagulation. Orthopedic and oral surgery consults appreciated. - WBAT in right knee and dressing changes per ortho. The pt will need outpt follow-up. - Physical therapy. - Pain control with a bowel regimen. - no surgery indicated per oral surgery. Sinus precautions. -10/08. no changes. f/u PCP //Patellar fx. nonoperative mgt. -brace per ortho. -f/u with Jan or KENDALL in 2 weeks //Right Leg Skin Tear -As per ortho - cont daily dressing changes with xeroform/4x4/RAJESH //Mechanical mitral valve/ CHF - INR 1.9, pharmacy managing Coumadin, - D/Wcase manager digital can do Lovenox Bridge unitl INR therapeutic (INR therapeutic range 2.5-3.5) -family will pay for SNF. Constipation Resolved. - continue bowel regimen. PPx: Lovenox bridging until inr 2.5-3.5 range, Coumadin. d/w CM, nurse, patient. Pt Condition on Discharge: Good Discharge Disposition: Discharge to SNF Discharge Time: <= 30 minutes Discharge Instructions DIET: Follow Instructions for: Heart Healthy Diet, Coumadin (Warfarin) Diet Activities you can perform: Weight Bearing as [place] Follow up Referrals: Orthopedics - 10/18/16 @ [facility] with Matt Montoya MD New Medications: Hydrocodone-Acetaminophen (Rolla) 5-325 mg Tab 1 TAB PO Q4H PRN PAIN #60 Ref 0 TAB Walker/Adult/Folding (Walker/Adult/Folding) 1 Mis Mis 1 EA .ROUTE DIRECTED #1 Ref 0 EA Enoxaparin Inj (Lovenox Inj) 60 Mg/0.6 Ml Syr 50 MG SQ Q12HR Mechanical valve bridging Days 7 INJECTION Warfarin (Coumadin) 6 Mg Tab 6 MG PO DAILY@1600 mechanical valve #30 TAB Continued Medications: Digoxin (Digoxin) 0.125 Mg Tab 0.125 MG PO DAILY Regulate Heart Beat #30 Ref 0 TAB Nortriptyline (Nortriptyline) 50 Mg Cap 50 MG PO HS Depression Control #30 Ref 0 CAP Omeprazole (Omeprazole) 20 Mg Tab 20 MG PO DAILY #30 Ref 0 TAB Propranolol (Propranolol) 20 Mg Tab 20 MG PO Q12HR #60 Ref 0 TAB Simvastatin (Simvastatin) 40 Mg Tab 40 MG PO HS Cholesterol Management #30 Ref 0 TAB Maksim Croft MD Oct 08, 2016 13:39
[2016-10-08] MEDS: ACETAMINOPHEN 325 MG TAB PO PRN (14:26)
[2016-10-08 16:00] VITALS: BP 119/56; PULSE 75; RESP 20; TEMP 96.9; O2SAT 95
[2016-10-08] MEDS ORDERED: WARFARIN SOD 5 MG TAB PO SCH (16:00)
[2016-10-08 20:00] VITALS: BP 106/66; PULSE 83; RESP 20; TEMP 96.4; O2SAT 98
[2016-10-08] MEDS: NORTRIPTYLINE HCL 25 MG CAP PO SCH (20:55)
[2016-10-08] MEDS: PRAVASTATIN SOD 80 MG TAB PO SCH (20:56)
[2016-10-09] VITALS: BP 150/71; PULSE 82; RESP 16; TEMP 97.1; O2SAT 98
[2016-10-09 07:03] LABS: INTERNATIONAL NORMALIZED RATIO 2.3 RATIO
[2016-10-09 08:15] VITALS: BP 134/68; PULSE 86; RESP 16; TEMP 95.5; O2SAT 97
[2016-10-09] MEDS: PANTOPRAZOLE SOD 20 MG DELAYED RELEASE TAB PO SCH (08:29)
[2016-10-09] MEDS: DIGOXIN 0.125 MG TAB PO SCH (08:29)
[2016-10-09] MEDS: SODIUM CHLORIDE 0.9% FLUSH 5 ML FLUSH FLUSH SCH (08:29)
[2016-10-09] MEDS: ENOXAPARIN SODIUM 60 MG/0.6 ML SYRINGE SQ SCH (08:29)
[2016-10-09] MEDS: PROPRANOLOL HCL 20 MG TAB PO SCH (08:29)
[2016-10-09] MEDS: DOCUSATE SODIUM 100 MG CAP PO SCH (08:29)
[2016-10-09] MEDS: POLYETHYLENE GLYCOL 17 GM PKG PO SCH (08:29)
[2016-10-09] MEDS: SENNOSIDES 8.6 MG TAB PO SCH (08:42)
[2016-10-09] MEDS: ESTRADIOL 0.1 MG/GM VAG CREAM 42.5 GM VAGINAL SCH (08:43)
[2016-10-09] MEDS: HYDROCORTISONE 2.5% CREAM 30 GM TOPICAL SCH (08:43)
[2016-10-09 11:30] VITALS: BP 107/62; PULSE 73; RESP 16; TEMP 95.6; O2SAT 96
== END 2016-10-09 13:25 ==
LOC: N06B 10-03 15:34
PROVIDERS: ADMIT Internal Medicine; ATTEND Internal Medicine
DX: S02.31XA Fracture of orbital floor, right side, initial encounter for closed fracture (principal); S82.001A Unspecified fracture of right patella, initial encounter for closed fracture; N39.0 Urinary tract infection, site not specified; I50.9 Heart failure, unspecified; E78.5 Hyperlipidemia, unspecified; K59.00 Constipation, unspecified; E78.00 Pure hypercholesterolemia, unspecified; L40.9 Psoriasis, unspecified; G43.909 Migraine, unspecified, not intractable, without status migrainosus; H54.42 Blindness, left eye, normal vision right eye; H46.9 Unspecified optic neuritis; Z79.01 Long term (current) use of anticoagulants; Z95.2 Presence of prosthetic heart valve; W19.XXXA Unspecified fall, initial encounter
CPT/HCPCS: 71010; 73560; 74000; 80048; 80162; 81001; 85025; 85027; 85610; 93005; 97110; 97116; 97163; G0378; G8987; G8988; J1650